=== PATIENT | male | born 1965 | race Caucasian/White ===

== ENCOUNTER 2021-11-19 13:37 | Emergency (ER) | payer OTHER | END 2021-11-19 14:57 | disposition home or self-care (01) | LOC: MW.ED 13:37 | DX: M54.6 Pain in thoracic spine (principal) | CPT/HCPCS: 71046; 71046-26; 72128; 72128-26; 99283; 99284-25 ==

== ENCOUNTER 2024-10-05 13:35 | Emergency (ER) | payer OTHER ==
[2024-10-05] MEDS: Cyclobenzaprine 5 MG Tab PO STA (17:56)
== END 2024-10-05 20:57 | disposition home or self-care (01) ==
LOC: MW.ED 13:35
DX: M54.50 Low back pain, unspecified (principal); I10 Essential (primary) hypertension; V49.49XA Driver injured in collision with other motor vehicles in traffic accident, initial encounter
CPT/HCPCS: 70450; 72125; 72128; 72131; 99284; A9270